=== PATIENT | female | born 1930 | race Caucasian/White ===

== ENCOUNTER → 2018-10-06 | Day surgery (SDC) | payer MEDICARE, OTHER ==
[~2018-10-06] MED LIST: ACETAMINOPHEN 500 MG TAB PO ONE
== END | disposition home or self-care (01) ==
LOC: SDS 05:41
PROVIDERS: ATTEND Podiatrist Primary Podiatric Medicine
DX: M79.674 Pain in right toe(s) (principal); Z53.09 Procedure and treatment not carried out because of other contraindication; Z79.02 Long term (current) use of antithrombotics/antiplatelets; Z79.82 Long term (current) use of aspirin